=== PATIENT | female | born 1960 | race Caucasian/White ===

== ENCOUNTER 2017-02-20 13:27 | Outpatient (CLI) ==
--- NOTE | 2017-02-20 15:50 | DI ---
EXAM: Lumbar spine five view HISTORY: Low back pain COMPARISON: None TECHNIQUE: Five views lumbar spine were performed, including oblique views FINDINGS: Sacroiliac joints intact. Sacral arcuate intact. Vertebral bodies normal in height. The re are multilevel marginal osteophytes. Mild and moderate multilevel intervertebral disc space narro wing. Multilevel facet arthrosis. There appears to be grade 1 anterolisthesis of L4 on L5, noting ksenia luation on the lateral view is limited due to oblique positioning. IMPRESSION: Chronic discogenic degenerative disease and facet arthrosis. There appears to be grade 1 anterolisthesis of L4 on L5, noting evaluation on the lateral view is limited due to oblique positio zhang.
--- NOTE | 2017-02-21 11:34 | MAMMO ---
EXAM: Bilateral digital screening mammogram History: Screening Comparison: Bilateral mammogram 10/14/2015 Findings: MLO and CC views of bilateral breasts demonstrate scattered fibroglandular breast parenchy ma. Stable benign bilateral breast calcifications. There are no dominant masses, no suspicious micr ocalcifications and no architectural distortions Impression: Benign stable mammogram. Recommend followup routine screening mammography in 1 year. BIRADS 2
== END 2017-02-20 13:28 | disposition home or self-care (01) ==
LOC: RAD 13:27
PROVIDERS: ATTEND Physician Assistant Medical
DX: Z12.31 Encounter for screening mammogram for malignant neoplasm of breast (principal); M54.5 Low back pain
CPT/HCPCS: 77067

== ENCOUNTER 2017-02-26 13:30 | Outpatient (CLI) ==
--- NOTE | 2017-02-26 16:14 | MRI ---
EXAM: MRI lumbar spine without IV contrast. DATE: 26 February 2017. HISTORY: Low back pain. TECHNIQUE: Sagittal and axial T1W and T2W sequences of the lumbar spine along with sagittal IR and c oronal T2W sequences were obtained using 1.2 Anna magnet. No IV contrast. COMPARISON: LS spine series 19 02/06/2017. FINDINGS: There are five [id number] lumbar vertebra. No lumbar scoliosis is evident. A 2.7 mm anterior subluxation of L3 relative to L4 and 4 mm anterolisthesis of L4 relative to L5 are observed . No other subluxation, acute fracture, osseous malignancy, or pars interarticularis defect is demon strated. Lumbar vertebra are normal in height. Bone marrow signal is normal. Small anterior osteop hytes are visible in the lower lumbar spine. Mild disc space narrowing is detected at L3-4 and L4-5. No acute sacral fracture or stress reaction is demonstrated. There is no acute sacroiliitis. Conu s medullaris terminates at L1 inferior endplate. Visible spinal cord reveals no syrinx, cord edema, myelomalacia, or neoplasm. No retroperitoneal lymphadenopathy, paraspinal mass, or aortic aneurysm is detected. Psoas muscles a re normal. Posterior paraspinal muscles are symmetric bilaterally. Visible portions of the liver, s pleen, adrenal glands and kidneys reveal no abnormality. No gallbladder wall thickening or stone is revealed on these limited images. Probable normal folds of the descending colon; however, diverticul i amongst the folds are not completely excluded. Segmental analysis: T11-12: Minimal posterior disc bulge does not cause cord compression, central stenosis or foraminal stenosis. T12-L1: Minimal posterior disc bulge does not cause cord compression, central stenosis or foraminal stenosis. L1-2: Normal. L2-3: Minimal posterior disc bulge and mild facet arthropathy cause mild central canal stenosis. Ea ch foramen is patent. L3-4: Minor anterior subluxation of L3, moderate/marked bilateral facet arthropathy, and moderate li gamentum flavum hypertrophy cause moderate/marked central canal stenosis and mild bilateral foraminal stenoses. Each L3 nerve root contacts the disc bulge near the lateral margin of the foramen. L4-5: Mild anterior subluxation of L4, small concentric disc bulge, marked bilateral facet arthropat hy, and moderate ligamentum flavum hypertrophy cause severe central canal stenosis, moderate bilatera l lateral recess stenosis superiorly, and mild bilateral foraminal stenoses. Each L4 nerve root appe ars to contact the disc bulge near the lateral margin of the foramen. Tiny right facet effusion is e vident. L5-S1: Minimal posterior disc bulge, moderate right facet arthropathy, marked left facet arthropathy , and mild ligamentum flavum hypertrophy cause minor right and mild left foraminal stenoses. No cent ral canal stenosis. Small right and on the left facet effusions are noted. IMPRESSIONS: 1. Lumbar spine mild spondylosis, moderate/marked facet arthropathy, mild subluxations at L3-4 and L 4-5, and multilevel DDD. 2. Multilevel central canal stenoses (L2-3: Mild. L3-4: Moderate/marked. L4-5: Severe). 3. Multilevel foraminal stenoses as described. Both L3 and both L4 nerve roots contact disc bulges near the foramen, and may be sources for pain/radiculopathy.
== END 2017-02-26 13:31 | disposition home or self-care (01) ==
LOC: RAD 13:30
PROVIDERS: ATTEND Physician Assistant Medical
DX: M54.5 Low back pain (principal)